=== PATIENT | female | born 1950 | race Caucasian/White ===

== ENCOUNTER 2016-03-13 19:48 | Emergency (ER) | payer OTHER ==
--- NOTE | 2016-03-13 21:00 | DIAGNOSTIC IMAGING REPORT ---
PROCEDURE: XR CHEST 2 VIEW INDICATION: CHEST PAIN, initial encounter TECHNIQUE: PA and lateral view. COMPARISON: Chest x-ray 03/08/2011 and 07/15/2010. FINDINGS: Hyperinflation. Lungs are clear. Cardiovascular structures are normal. Moderate approximate T7 compression fracture new since 2010. IMPRESSION: 1. No acute changes 2. Hyperinflation 3. Mid thoracic spine compression fracture, probably chronic
--- NOTE | 2016-03-13 21:44 | ED CLINICAL REPORT ---
Clinical Report - Physicians/Mid Levels [facility]ly [facility] [address] [place] [address] 03/13/2016 19:48 [id number] Time Seen: 20:36 Mar 13 2016. Arrived- By private vehicle. Historian- patient. HISTORY OF PRESENT ILLNESS Chief Complaint: CHILLS and COUGH. This started just prior to arrival and is still present. No weight loss, headache or muscle aches. She has had fatigue and weakness. Denies sleep problem. (feeling off/ shaking, reports cough ongoing for 2-3 weeks, recent cxr, and dx with pneumonia, started on abx, has had 3 doses (cefuroxime), achy today. NO hemoptysis. Some episodic chest pain today for a few seconds, that resolved. No syncope, no bergman.). REVIEW OF SYSTEMS No fever, sore throat, sinus drainage, difficulty breathing or chest pain. No nausea, vomiting, diarrhea, chills or difficulty with urination. No skin rash or back pain. She has had a cough. No difficulty with ambulation. All systems otherwise negative, except as recorded above. SOCIAL HISTORY Smoker- current status unknown. No alcohol use or drug use. ADDITIONAL NOTES The nursing notes have been reviewed. PHYSICAL EXAM Vital Signs: 03/13/2016 20:16 BP: 146/77. HR: 83. RR: 20. O2 saturation: 96%. Temp: 98.0 F. Appearance: Alert. No acute distress. ENT: Nose normal. Pharynx normal. No pharyngeal erythema. Neck: Normal inspection. CVS: Normal heart rate and rhythm. Pulses normal. Respiratory: No respiratory distress. Breath sounds normal. Abdomen: No visible injury. Bowel sounds normal. No abdominal tenderness. Back: Normal inspection. Skin: Skin warm. Normal skin color. Neuro: Oriented X 3. No motor deficit. LABS, X-RAYS, AND EKG EKG: EKG time: (2054). No acute process. No acute ischemia. Rate: 80. Normal P waves. Normal FABY. Normal QRS complex. Normal axis. Normal ST and T waves and QT. Prior EKG unavailable. The study has been interpreted contemporaneously. The study has been independently viewed by me. The EKG appears to be a good tracing. I agree with and confirm the computer reading of the EKG. Chest X-ray: (IMPRESSION: 1. No acute changes 2. Hyperinflation 3. Mid thoracic spine compression fracture, probably chronic Electronically Final signed by:Lewis Canela MD 03/13/2016 8:59:57 PM). Laboratory Tests: CBC w Diff: (ZENAIDA: 03/13/2016 20:55) ( [facility] 03/13/2016 21:07) Final results Test Result Flag Units (Reference) WHITE BLOOD COUNT 12.3 H K/uL (4.5-11.5) RED BLOOD COUNT 5.00 M/uL (4.00-5.20) HEMOGLOBIN 15.3 gm/dL (12.0-16.0) HEMATOCRIT 45.8 % (36.0-46.0) MEAN CELL VOLUME 92 fL (80-100) MEAN CORPUSCULAR HGB 31 pg (26-34) MEAN CORPUSCULAR HGB CONC 33 g/dL (31-37) RED CELL DISTRIBUTION WIDTH 14.2 % (11.6-14.8) PLATELET COUNT 321 K/uL (150-400) NEUTROPHIL % 75.0 % (50-75) LYMPH % 15.3 L % (25-40) MONO % 8.0 % (3-14) EOSINOPHIL % 0.9 % (0-4) BASOPHIL % 0.8 % (0-2) CHEM 13 PANEL: (ZENAIDA: 03/13/2016 20:55) ( MsgRcvd 03/13/2016 21:23) Final results Test Result Flag Units (Reference) GLUCOSE 102 mg/dL (70-110) BUN 9 mg/dL (7-18) CREATININE 0.6 mg/dL (0.6-1.3) Estimated GFR >60 mL/min Estimated GFR- >60 mL/min Note: Persistent reduction over 3 months in eGFR<60 mL/min/1.73 m2 defines CKD. Patients with eGFR values>=60 mL/min/1.73 m2 may also have CKD if evidence ofpersistent proteinuria. Additional information may be foundat www.kidney.org. SODIUM 142 mmol/L (136-145) POTASSIUM 4.0 mmol/L (3.5-5.1) CHLORIDE 105 mmol/L (98-107) CARBON DIOXIDE 31 mmol/L (21-32) CALCIUM 10.4 H mg/dL (8.5-10.1) TOTAL PROTEIN 7.7 g/dL (6.4-8.2) ALBUMIN 3.4 g/dL (3.3-5.0) BILIRUBIN, TOTAL 0.3 mg/dL (0.0-1.0) ALKALINE PHOSPHATASE 101 U/L (46-116) AST (SGOT) 15 U/L (15-37) ALT (SGPT) 18 U/L (12-78) MAGNESIUM 2.1 mg/dL (1.8-2.4) CPK 65 U/L (24-260) TROPONIN I <0.05 L ng/mL (0.00-1.5) TROPONIN REFERENCE RANGE:<0.1 NEGATIVE0.1-1.5 INDETERMINANT>1.5 POSITIVE . PROGRESS AND PROCEDURES Course of Care: Patient here asymptomatic, no chest pain or difference of breath. Chest x-ray unremarkable. EKG unremarkable, slight leukocytosis, may be attributed to her recent steroid use, as otherwise patient with no left shift. Patient on antibiotics, history of COPD. 03/13/2016 21:45 BP: 132/80. HR: 80. RR: 20. O2 saturation: 95%. Temp: 98.6 F. Pain level now: 0/10. Patient is stable. Symptoms better. Differential Diagnosis: I considered viral bronchitis, laryngotracheobronchitis, viral pneumonia, bacterial bronchitis, bacterial pneumonia, mycoplasmal bronchitis, mycoplasmal pneumonia, chlamydial bronchitis, chlamydial pneumonia, bronchospasm, allergic bronchospasm, irritant bronchospasm, lung cancer, pulmonary embolism and adverse drug reaction as a possible cause of cough in this patient. This is a partial list of diagnoses considered. Disposition: Discharged. CLINICAL IMPRESSION Acute exacerbation of COPD. INSTRUCTIONS (drink plenty of fluid). Warnings: Further evaluation is necessary. It is very important to follow up with a physician. Your Current Medications: CONTINUE TAKING THE FOLLOWING MEDICATIONS: Albuterol Inhalation : 2 puffs, prn. Cefuroxime Axetil Oral : 250 mg 2x a day. Probiotic Oral. Qvar Inhalation : one puff 2 x daily, Hasn't taken this Rx for several months. OTC Medications: Take OTC medications according to label instructions. Available over the counter. Acetaminophen (available over the counter): take according to label instructions. Motrin (available over the counter): take according to label instructions. Follow-up: Follow up with your doctor Thursday. (Electronically signed by Jyoti Lara P.A.-C 03/13/2016 22:31)
--- NOTE | 2016-03-13 21:44 | ED ORDER SUMMARY ---
..... Patient: NIKI MORALES OrderSheet [facility] VisitID: [id number] [address] [place] [address] 66y, F Registration Date/Time: 03/13/2016 ORDER SHEET Weight: 72.5 kg (stated) Allergies: No Known Drug Allergy GENERAL ORDERS: Chest 2V Urgent (20:34 03/13/2016 EKoroleva P.A.-C) (Ack 20:44 LMuller) (20:47 MCampbell) Cardiac Panel Stat (:34 03/13/2016 EKoroleva P.A.-C) (Ack 20:44 LMuller) (21:32 LMuller) EKG - ER Stat (:34 03/13/2016 EKoroleva P.A.-C) (Ack 20:44 LMuller) (21:29 LMuller) MEDICATION ORDERS: IV FLUIDS: IV NS : initial bolus 750 mL (1000 mL/hr), then 1000 mL/hr for X1 (NOW); Miquel (:34 03/13/2016 EKoroleva P.A.-C) (20:59 HSoule) ORDER SHEET NOTES: [Electronically signed by Jyoti Lara P.A.-C (22:31 03/13/2016)] [Electronically signed by Lizett Rodriguez (05:43 03/14/2016)] [Electronically locked/signed by Lizett Rodriguez (05:43 03/14/2016)]
--- NOTE | 2016-03-13 21:44 | ED ORDER SUMMARY ---
..... Patient: NIKI MORALES OrderSheet [facility] VisitID: [id number] [address] [place] [address] 66y, F Registration Date/Time: 03/13/2016 ORDER SHEET Weight: 72.5 kg (stated) Allergies: No Known Drug Allergy GENERAL ORDERS: Chest 2V Urgent (20:34 03/13/2016 EKoroleva P.A.-C) (Ack 20:44 LMuller) (20:47 MCampbell) Cardiac Panel Stat (:34 03/13/2016 EKoroleva P.A.-C) (Ack 20:44 LMuller) (21:32 LMuller) EKG - ER Stat (:34 03/13/2016 EKoroleva P.A.-C) (Ack 20:44 LMuller) (21:29 LMuller) MEDICATION ORDERS: IV FLUIDS: IV NS : initial bolus 750 mL (1000 mL/hr), then 1000 mL/hr for X1 (NOW); Miquel (:34 03/13/2016 EKoroleva P.A.-C) (20:59 HSoule) ORDER SHEET NOTES: [Electronically signed by Jyoti Lara P.A.-C (22:31 03/13/2016)] [Electronically signed by Lizett Rodriguez (05:43 03/14/2016)] [Electronically locked/signed by Lizett Rodriguez (05:43 03/14/2016)]
--- NOTE | 2016-03-13 21:44 | ED NURSING NOTES ---
Clinical Report - Nurses [facility] [address] [place] [address] 03/13/2016 19:48 Patient: NIKI MORALES [facility]#: [id number] TRIAGE Triage time 20:16 Mar 13 2016. Acuity: LEVEL 3. Chief Complaint: ("shakey"). Alert. No acute distress. AGNES COMA SCORE: [place] Coma Scale: 15- eyes open spontaneously (4); best verbal response- oriented x 4 (5); best motor response- obeys commands (6). --20:25 Juliette Aguilera R.N. 20:16 03/13/16. BP: 146/77. HR: 83. RR: 20. O2 saturation: 96%. Temp: 98.0 F. Pain level now 0/10. --20:25 Juliette Aguilera R.N. Weight: 72.5 kg stated. Height/Length: 61 inches Per Patient. BMI: 30.2. --20:15 Juliette Aguilera R.N. Medications Albuterol Inhalation 2 puffs, as needed. Qvar Inhalation one puff, 2 x daily (Hasn't taken this Rx for several months). --20:18 Juliette Aguilera R.N. Probiotic Oral. --20:19 Juliette Aguilera R.N. Cefuroxime Axetil Oral 250 mg, 2x a day. --20:19 Juliette Aguilera R.N. Medication/allergy information source: the patient. --20:25 Juliette Aguilera R.N. Allergies No Known Drug Allergy. --20:18 Juliette Aguilera R.N. History Arrived by private vehicle. Historian: patient. Accompanied by family. Primary physician ([facility]). ( Pt states she has been feeling sick couple weeks, saw a covering doc at [facility] on the to R/O Bronchitis. Was placed on a Nasal [place] and Prednisone. Completed course. 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 Started Cefuroxime 250mg BID, has 3 doses in. Feels shaky, however using Albuterol Inhaler BID. Concerned.). This started today. Treatment INSURANCE ADVISOR: None. PAST MEDICAL HX: Immunizations: up-to-date and has received pneumonia vaccine; seasonal influenza. Denies current . SOCIAL HX: Heavy tobacco smoker (cigarette)- less than 1 pack per day. No alcohol use or drug use. No infectious disease exposure. FALL RISK ASSESSMENT: Fall risk assessment completed. No fall risk identified. NUTRITIONAL RISK ASSESSMENT: The nutritional risk assessment revealed no deficiencies. FUNCTIONAL ASSESSMENT: Functional assessment: no impairments noted. LEARNING NEEDS ASSESSMENT: The learning needs assessment revealed no barriers. SKIN INTEGRITY ASSESSMENT: Skin integrity risk assessment completed. No skin integrity risk identified. --20:25 Juliette Aguilera R.N. PROBLEMS: Humerus Fracture. LNMP - Last Normal Menstrual Period. Hypoxia. Dyspnea. COPD - Chronic Obstructive Pulmonary Disease. Immunizations. --20:19 Juliette Aguilera R.N. ADDITIONAL SURGERIES: Cholecystectomy. Tonsillectomy. --20:19 Juliette Aguilera R.N. Interventions ID band on patient. To room. --20:25 Juliette Aguilera R.N. NURSING PROGRESS NOTES Care transferred and report given (JERICA Phoenix). --20:45 Juliette Aguilear R.N. 20:52 03/13/2016 Site #1 started via IV in the right antecubital space with an 20g angiocath, with aseptic technique and good blood return; one attempt. Blood drawn: rainbow set. Labeled in the presence of the patient and sent to the lab. Saline lock flushed with 10 mL saline (Started by SN Kristy). --20:58 Lizett Rodriguez 20:59 03/13/2016 Started bag #1 1000 mL IV Fluids IV NS (Saline); at 1000 mL/hr over 1 hour(s) via site #1. Allergies verified and confirmed 5 rights. IV patency established. IV site checked: no pain, redness, or swelling. IV flushed thoroughly pre- and post-medication administration. --20:59 Lizett Rodriguez 20:59 03/13/16. BP: 141/76. HR: 80. RR: 20. O2 saturation: 95%. Temp: deferred. Pain level now: 0/10. --21:00 Lizett Rodriguez EKG time: (2127). EKG was performed by a tech and shown to the PA. --21:28 Pily Trinh 21:32 03/13/16. BP: 132/80. HR: 77. O2 saturation: 96% on room air. --21:33 Lizett Rodriguez 21:55 03/13/2016 Site #1 removed upon discharge. Catheter intact. Bandaid applied. --22:00 Margaret Calderon R.N. 21:55 03/13/2016 IV Fluids IV NS Discontinued: bag #1 STOPPED upon discharge. Total amount infused: 300 mL. IV patency established. IV site checked: no pain, redness, or swelling. IV flushed thoroughly. --22:00 Margaret Calderon R.N. DISPOSITION / DISCHARGE 21:45 03/13/16. BP: 132/80. HR: 80. RR: 20. O2 saturation: 95% on room air. Temp: 98.6 F (oral). Pain level now: 0/10. --21:46 Lizett Rodriguez 21:55. Condition at departure: improved. No learning barriers present. Reviewed medication(s) side effects, precautions, dosing and course information. Patient verbalized understanding. Written instructions provided in Turkish. Discharge instructions not provided and reviewed with the patient. The patient was discharged home and accompanied by spouse. She left the Emergency Department ambulatory and via private vehicle. Spouse driving. Medication list reviewed and validated. --21:59 Margaret Calderon R.N. Locked/Released at 03/14/2016 5:43 by Lizett Rodriguez,
--- NOTE | 2016-03-13 21:44 | ED NURSING NOTES ---
Clinical Report - Nurses [facility] [address] [place] [address] 03/13/2016 19:48 Patient: NIKI MORALES [facility]#: [id number] TRIAGE Triage time 20:16 Mar 13 2016. Acuity: LEVEL 3. Chief Complaint: ("shakey"). Alert. No acute distress. AGNES COMA SCORE: [place] Coma Scale: 15- eyes open spontaneously (4); best verbal response- oriented x 4 (5); best motor response- obeys commands (6). --20:25 Juliette Aguilera R.N. 20:16 03/13/16. BP: 146/77. HR: 83. RR: 20. O2 saturation: 96%. Temp: 98.0 F. Pain level now 0/10. --20:25 Juliette Aguilera R.N. Weight: 72.5 kg stated. Height/Length: 61 inches Per Patient. BMI: 30.2. --20:15 Juliette Aguilera R.N. Medications Albuterol Inhalation 2 puffs, as needed. Qvar Inhalation one puff, 2 x daily (Hasn't taken this Rx for several months). --20:18 Juliette Aguilera R.N. Probiotic Oral. --20:19 Juliette Aguilera R.N. Cefuroxime Axetil Oral 250 mg, 2x a day. --20:19 Juliette Aguilera R.N. Medication/allergy information source: the patient. --20:25 Juliette Aguilera R.N. Allergies No Known Drug Allergy. --20:18 Juliette Aguilera R.N. History Arrived by private vehicle. Historian: patient. Accompanied by family. Primary physician ([facility]). ( Pt states she has been feeling sick couple weeks, saw a covering doc at [facility] on the to R/O Bronchitis. Was placed on a Nasal [place] and Prednisone. Completed course. 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 Started Cefuroxime 250mg BID, has 3 doses in. Feels shaky, however using Albuterol Inhaler BID. Concerned.). This started today. Treatment ALLIED HEALTH INSTRUCTOR: None. PAST MEDICAL HX: Immunizations: up-to-date and has received pneumonia vaccine; seasonal influenza. Denies current . SOCIAL HX: Heavy tobacco smoker (cigarette)- less than 1 pack per day. No alcohol use or drug use. No infectious disease exposure. FALL RISK ASSESSMENT: Fall risk assessment completed. No fall risk identified. NUTRITIONAL RISK ASSESSMENT: The nutritional risk assessment revealed no deficiencies. FUNCTIONAL ASSESSMENT: Functional assessment: no impairments noted. LEARNING NEEDS ASSESSMENT: The learning needs assessment revealed no barriers. SKIN INTEGRITY ASSESSMENT: Skin integrity risk assessment completed. No skin integrity risk identified. --20:25 Juliette Aguilera R.N. PROBLEMS: Humerus Fracture. LNMP - Last Normal Menstrual Period. Hypoxia. Dyspnea. COPD - Chronic Obstructive Pulmonary Disease. Immunizations. --20:19 Juliette Aguilera R.N. ADDITIONAL SURGERIES: Cholecystectomy. Tonsillectomy. --20:19 Juliette Aguilera R.N. Interventions ID band on patient. To room. --20:25 Juliette Aguilera R.N. NURSING PROGRESS NOTES Care transferred and report given (JERICA Phoenix). --20:45 Juliette Aguilera R.N. 20:52 03/13/2016 Site #1 started via IV in the right antecubital space with an 20g angiocath, with aseptic technique and good blood return; one attempt. Blood drawn: rainbow set. Labeled in the presence of the patient and sent to the lab. Saline lock flushed with 10 mL saline (Started by SN Kristy). --20:58 Lizett Rodriguez 20:59 03/13/2016 Started bag #1 1000 mL IV Fluids IV NS (Saline); at 1000 mL/hr over 1 hour(s) via site #1. Allergies verified and confirmed 5 rights. IV patency established. IV site checked: no pain, redness, or swelling. IV flushed thoroughly pre- and post-medication administration. --20:59 Lizett Rodriguez 20:59 03/13/16. BP: 141/76. HR: 80. RR: 20. O2 saturation: 95%. Temp: deferred. Pain level now: 0/10. --21:00 Lizett Rodriguez EKG time: (2127). EKG was performed by a tech and shown to the PA. --21:28 Pily Trinh 21:32 03/13/16. BP: 132/80. HR: 77. O2 saturation: 96% on room air. --21:33 Lizett Rodriguez 21:55 03/13/2016 Site #1 removed upon discharge. Catheter intact. Bandaid applied. --22:00 Margaret Calderon R.N. 21:55 03/13/2016 IV Fluids IV NS Discontinued: bag #1 STOPPED upon discharge. Total amount infused: 300 mL. IV patency established. IV site checked: no pain, redness, or swelling. IV flushed thoroughly. --22:00 Margaret Calderon R.N. DISPOSITION / DISCHARGE 21:45 03/13/16. BP: 132/80. HR: 80. RR: 20. O2 saturation: 95% on room air. Temp: 98.6 F (oral). Pain level now: 0/10. --21:46 Lizett Rodriguez 21:55. Condition at departure: improved. No learning barriers present. Reviewed medication(s) side effects, precautions, dosing and course information. Patient verbalized understanding. Written instructions provided in Faroese. Discharge instructions not provided and reviewed with the patient. The patient was discharged home and accompanied by spouse. She left the Emergency Department ambulatory and via private vehicle. Spouse driving. Medication list reviewed and validated. --21:59 Margaret Calderon R.N. Locked/Released at 03/14/2016 5:43 by Lizett Rodriguez,
--- NOTE | 2016-03-14 05:44 | ED MAR SUMMARY ---
..... Medication Administration Record [facility] [address] [place] [address] Patient: NIKI MORALES Visit ID: [id number] 66y, F Weight: 72.5 kg Height/Length: 61 in BMI: 30.2 ALLERGIES: No Known Drug Allergy Start 20:59 03/13/2016 Lizett Rodriguez,, Stop 21:55 03/13/2016 Margaret Calderon R.N. Medication Administered: IV NS (SALINE), Dose: IV Fluids over 1 hour(s), Rate: 1000 mL/hr, Dispensed: 1000 mL bag, Site: #1 right AC. Medication Ordered: IV NS : initial bolus 750 mL (1000 mL/hr), then 1000 mL/hr for X1 (NOW); Miquel.
--- NOTE | 2016-03-14 05:44 | ED DISCHARGE INSTRUCTIONS ---
Patient: NIKI MORALES General Instructions [facility] VisitID: [id number] [address] [place] [address] 66y, F Registration Date/Time: 03/13/2016 Acute exacerbation of COPD. INSTRUCTIONS (drink plenty of fluid). Warnings: Further evaluation is necessary. It is very important to follow up with a physician. Your Current Medications: CONTINUE TAKING THE FOLLOWING MEDICATIONS: Albuterol Inhalation : 2 puffs, prn. Cefuroxime Axetil Oral : 250 mg 2x a day. Probiotic Oral. Qvar Inhalation : one puff 2 x daily, Hasn't taken this Rx for several months. OTC Medications: Take OTC medications according to label instructions. Available over the counter. Acetaminophen (available over the counter): take according to label instructions. Motrin (available over the counter): take according to label instructions. Follow-up: Follow up with your doctor Thursday. ADDITIONAL INFORMATION COPD Flare Both emphysema and chronic bronchitis are forms of chronic obstructive pulmonary disease (COPD). It is most often caused by many years of smoking tobacco. Many things can make your lung disease suddenly get worse. These causes include the common cold, pneumonia, acute bronchitis, missing doses of your regular breathing medicines, or being around smoke, dust, or other air pollutants. A COPD flare may last 7 to 14 days. Your doctor may prescribe medicineto relax your airways and prevent wheezing. Your doctor may also prescribe antibiotics if he or she thinks you havea bacterial infection. Prednisone can helpease inflammation in a severe attack. Home care Here are things you can do at home: Drink lots of water or other fluids (at least 10 glasses a day) during an attack. This will loosen lung secretions and make it easier to breathe. If you have heart or kidney disease, check with your doctor before you drink extra amounts of fluids. Take prescribed medicine exactly at the times advised. If you have a hand-held inhaler or aerosol breathing medicine, don't use it more than once every 4 hours, unless your doctor tells you to. If you were givenan antibiotic or prednisone, take all of the medicine even if you are feeling better after a few days. Don't smoke. Avoid being aroundthe smoke of others. If you were given an inhaler, use it exactly as directed. If you need to use it more often than prescribed, your condition may be getting worse. Call your doctor. Follow-up care Follow up with your health care provider.If you are 65 or older or have chronic asthma or COPD, you should get a single dose of the pneumococcal vaccine and aflu shot each year. You may need a second dose of the pneumococcal vaccine if you had the first dose at a younger age. Your health care provider will let you know if you need a second dose. For all other people, the usual dose for the pneumococcal vaccine is 1 or 2 shots. Yourprovider can discuss this with you. When to seek medical care Get prompt medical attention ifany of these occur: Increased wheezing or shortness of breath Need to use your inhalers more often than usual without relief Fever of 100.4F(38C) or higher, or as directed by your health care provider Coughing up lots of dark-colored or bloody sputum (mucus) Chest pain with each breath You do not start to improve within 24 hours Bronchitis (Adult: Abx Tx) BRONCHITIS is an infection of the air passages (bronchial tubes). It often occurs during the common cold. Symptoms include cough with mucus (phlegm) and low-grade fever. Bronchitis usually lasts 7-14 days. Mild cases can be treated with simple home remedies. More severe infection is treated with an antibiotic. Home Care: If symptoms are severe, rest at home for the first 2-3 days. When you resume activity, don't let yourself get too tired. Do not smoke. Avoid being exposed to the smoke of others. You may use acetaminophen (Tylenol) or ibuprofen (Motrin, Advil) to control fever or pain, unless another medicine was prescribed for this. [NOTE: If you have chronic liver or kidney disease or ever had a stomach ulcer or GI bleeding, talk with your doctor before using these medicines.] Your appetite may be poor, so a light diet is fine. Avoid dehydration by drinking 6-8 glasses of fluids per day (water, soft, drinks, juices, tea, soup, etc.). Extra fluids will help loosen secretions in the lungs. Rocx-prf-oeintrf cough medicines that containdextromethorphan(such as Robitussin DM) and decongestants (Actifed or Sudafed) may help relieve cough and congestion. [NOTE: Do not use decongestants if you have high blood pressure.] Finish all antibiotic medicine, even if you are feeling better after only a few days. Follow Up with your doctor or as directed if you dont start to feel better after three days. [NOTE: If you are age 65 or older, or if you have chronic asthma or COPD, we recommend a PNEUMOCOCCAL VACCINATION every five years and a yearly INFLUENZAVACCINATION (FLU-SHOT) every . Ask your doctor about this. If you had an X-ray, a radiologist will review it. You will be notified of any new findings that may affect your care.] Get Prompt Medical Attention if any of the following occur: Fever over 100.4F (38.0C) for more than three days Trouble breathing, wheezing or pain with breathing Coughing up blood or increased amounts of colored sputum Weakness, drowsiness, headache, facial pain, ear pain or a stiff neck You have been given the following additional information: COPD Flare Bronchitis, Antiobiotic Treatment (Adult) (Electronically signed by Jyoti Lara P.A.-C 03/13/2016 22:31)
--- NOTE | 2016-03-14 05:44 | ED MED RECONCILIATION SUMMARY ---
Patient: NIKI MORALES Medication Reconciliation Report [facility] VisitID: [id number] [address] [place] [address] 66y, F Registration Date/Time: 03/13/2016 Weight: 72.5 kg Height/Length: 61 in. BMI: 30.2 ALLERGIES: No Known Drug Allergy The patient's Home Medications are listed below: CONTINUE TAKING THE FOLLOWING MEDICATIONS: Albuterol Inhalation 2 puffs Cefuroxime Axetil Oral 250 mg, 2x a day Probiotic Oral Qvar Inhalation one puff, 2 x daily, Hasn't taken this Rx for several months The source(s) of the original Home Medication information: patient The following Medications were given to the patient in the Emergency Department: IV NS IV Fluids bolus 0, then 1000 mL/hr, administered: 03/13/2016 8:59:00 PM The following Medications were prescribed to the patient: Take OTC medications according to label instructions. Available over the counter. -- Jyoti Lara, P.A.-C Acetaminophen (available over the counter): take according to label instructions. -- Jyoti Lara, P.A.-C Motrin (available over the counter): take according to label instructions. -- Jyoti Lara, P.A.-C
--- NOTE | 2016-03-14 05:44 | ED MAR SUMMARY ---
..... Medication Administration Record [facility] [address] [place] [address] Patient: NIKI MORALES Visit ID: [id number] 66y, F Weight: 72.5 kg Height/Length: 61 in BMI: 30.2 ALLERGIES: No Known Drug Allergy Start 20:59 03/13/2016 Lizett Rodriguez,, Stop 21:55 03/13/2016 Margaret Calderon R.N. Medication Administered: IV NS (SALINE), Dose: IV Fluids over 1 hour(s), Rate: 1000 mL/hr, Dispensed: 1000 mL bag, Site: #1 right AC. Medication Ordered: IV NS : initial bolus 750 mL (1000 mL/hr), then 1000 mL/hr for X1 (NOW); Miquel.
--- NOTE | 2016-03-14 05:44 | ED MED RECONCILIATION SUMMARY ---
Patient: NIKI MORALES Medication Reconciliation Report [facility] VisitID: [id number] [address] [place] [address] 66y, F Registration Date/Time: 03/13/2016 Weight: 72.5 kg Height/Length: 61 in. BMI: 30.2 ALLERGIES: No Known Drug Allergy The patient's Home Medications are listed below: CONTINUE TAKING THE FOLLOWING MEDICATIONS: Albuterol Inhalation 2 puffs Cefuroxime Axetil Oral 250 mg, 2x a day Probiotic Oral Qvar Inhalation one puff, 2 x daily, Hasn't taken this Rx for several months The source(s) of the original Home Medication information: patient The following Medications were given to the patient in the Emergency Department: IV NS IV Fluids bolus 0, then 1000 mL/hr, administered: 03/13/2016 8:59:00 PM The following Medications were prescribed to the patient: Take OTC medications according to label instructions. Available over the counter. -- Jyoti Lara, P.A.-C Acetaminophen (available over the counter): take according to label instructions. -- Jyoti Lara, P.A.-C Motrin (available over the counter): take according to label instructions. -- Jyoti Lara, P.A.-C
== END 2016-03-13 21:55 | disposition home or self-care (01) ==
LOC: ED SRH 19:48
DX: J44.1 Chronic obstructive pulmonary disease with (acute) exacerbation (principal); F17.210 Nicotine dependence, cigarettes, uncomplicated; Z79.899 Other long term (current) drug therapy
CPT/HCPCS: 90100; 90616; 92610; 92720; 95059